=== PATIENT | female | born 1930 | race Caucasian/White ===

== ENCOUNTER 2017-08-20 08:24 | Emergency (ER) | payer MEDICARE, OTHER ==
[~2017-08-20] VITALS: Ht 157.5 cm; Wt 81.7 kg
[~2017-08-20 08:24] MED LIST: ACCUNEB SO1.25 MG/1 INH; AMBIEN 10 MG TA10 MG OR; ASPIR 8181 M1 PO; ASPIR 8181 MG PO; ASPIRIN EC325 M1 PO; ASPIRIN EC81 M1; ASPIRIN325 PO; AZITHROMYCIN 2250 MG PO; BLOOD PRESSURE; BUMETANIDE 1 MG1 M1 PO; BUSPIRONE HCL10 MG PO; CARVEDILOL6.25 MG PO; CIPROFLOXACIN500 M1 PO; COLACE100 MG PO; CYMBALTA30 MG PO; CYMBALTA60 MG PO; DETROL LA2 MG PO; ENABLEX15 MG PO; FIBERCON625 M1 PO; FIORICET 50-301 EACH PO; FISH OIL 1,0001 EAC5 PO; FISH OIL 1,001000 M3 PO; FISHOIL; FUROSEMIDE; IRON159 MG; IRON256 MG PO; IRON325 PO; LASIX 40 MG TAB40 M1 PO; LEVAQUIN 500 M500 M2 PO; LEVAQUIN 500 M500 MG PO; LISINOPRIL10 MG PO; LISINOPRIL5 MG PO; LOPERAMIDE 2 MG2 M1 PO; MACRODANTIN100 MG; MECLIZINE HCL25 M1 PO; METAMUCIL PAC1 UDPK1; METOPROLOL SUCC25 M1 PO; MIRALAX17 G1 PO; MOM; MUCINEX TA600 MG/TA1 PO; NITROFURANTOIN100 MG PO; NITROFURANTOIN50 M4; NITROGLYCERIN0.4 MG SUBLING; NORCO 5-325 TA1 EACH PO; OXYCODONE HCL 55 MG PO; PERCOCET 5-3251 EACH PO; PROVENTIL HFA6.7 G1 INH; REMERON30 MG PO; SIMVASTATIN20 MG; STOOL SOFTENER240 MG PO; TESSALON PERLE100 M1 PO; TOPROL XL25 MG; TOPROL XL50 MG PO; TRAMADOL 50 MG50 MG PO; VESICARE10 M1 PO; VICODIN; VICODIN 5-5001 EACH; VICODIN 5-5001 EACH PO; VITAMIN D-32000 UNIT PO; VITAMIN D1000 UNI1 PO; VITAMIN D2400 UNIT PO; VITAMIN D32000 UNI1 PO; VITAMIN E400 UNIT PO; XANAX 0.25 MG0.25 MG PO; XANAX 1 MG TABLE1 MG PO; XANAX XR1 MG OR; XANAX XR1 MG PO; XANAX1 MG PO; XARELTO10 MG PO; ZEBUTAL; ZEBUTAL 50-3251 EACH PO; ZOCOR 20 MG TAB20 M1 PO
[2017-08-20] MEDS ORDERED: KEFLEX500 M1 PO (10:02)
[2017-08-20] MEDS ORDERED: NORCO 5-325 TA1 EACH PO (10:02)
[2017-08-20 10:13] VITALS: BP 120/55
== END 2017-08-20 10:15 | disposition home or self-care (01) ==
LOC: M.ERS 08:24
DX: S61.411A Laceration without foreign body of right hand, initial encounter (principal); Z87.891 Personal history of nicotine dependence; Z88.0 Allergy status to penicillin; Z88.2 Allergy status to sulfonamides; Z88.5 Allergy status to narcotic agent; Z88.3 Allergy status to other anti-infective agents; W01.0XXA Fall on same level from slipping, tripping and stumbling without subsequent striking against object, initial encounter; Y93.89 Activity, other specified; Y92.89 Other specified places as the place of occurrence of the external cause; Y99.8 Other external cause status

== ENCOUNTER 2017-11-01 19:02 | Emergency (ER) | payer MEDICARE, OTHER ==
[~2017-11-01] VITALS: Ht 167.6 cm; Wt 72.6 kg
[~2017-11-01 19:02] MED LIST changes: +KEFLEX500 M1 PO
[2017-11-01] MEDS ORDERED: XANAX 0.25 MG0.25 MG PO (19:15)
[2017-11-01] MEDS ORDERED: BUSPIRONE HCL10 MG PO (19:16)
[2017-11-01] MEDS ORDERED: TRAMADOL 50 MG50 MG PO (19:16)
[2017-11-01] MEDS ORDERED: TOLTERODINE TART2 M1 PO (19:17)
[2017-11-01] MEDS ORDERED: VESICARE10 M1 PO (19:18)
[2017-11-01 19:31] LABS: ABSOLUTE EOSINOPHILS 0.1 thou/uL (0.0-0.7); ABSOLUTE LYMPHOCYTES 1.5 thou/uL (0.8-5.3); ABSOLUTE MONOCYTES 0.3 thou/uL (0.0-1.2); ABSOLUTE NEUTROPHILS 6.6 thou/uL (1.6-8.1); BASOPHILS 0.4 %; EOSINOPHILS 0.6 %; HEMATOCRIT 40.3 % (37.0-47.0); HEMOGLOBIN 13.3 gm/dL (12.0-15.0); LYMPHOCYTES 17.6 %; MCH 29.7 pg (26.0-34.0); MCHC 33.1 g/dL (28.0-37.0); MCV 89.7 fL (80.0-100.0); MONOCYTES 3.9 %; MPV 7.7 fl. (7.2-11.1); NUCLEATED RBCS 0 /100WBC; PLATELET COUNT* 308 thou/uL (150-400); POLYS 77.5 %; RBC 4.49 mil/uL (4.20-5.00); RDW-CV 14.7 % (10.5-14.5); WBC 8.5 thou/uL (4.0-11.0)
[2017-11-01 19:44] LABS: CALCIUM 8.7 mg/dL (8.5-10.1); CREATININE 1.3 mg/dL (0.6-1.3); POTASSIUM 4.1 mmol/L (3.5-5.1)
[2017-11-01 19:56] LABS: TOTAL BILIRUBIN 0.3 mg/dL (<0.1-1.0); TOTAL PROTEIN 7.3 g/dL (6.4-8.2)
[2017-11-01 21:11] LABS: URINE BILIRUBIN NEGATIVE (Negative); URINE BLOOD 1+ (Negative); URINE COLOR YELLOW; URINE GLUCOSE-RANDOM NEGATIVE (Negative); URINE KETONES NEGATIVE (Negative); URINE LEUKOCYTES-REFLEX TRACE (Negative); URINE NITRITE-REFLEX NEGATIVE (Negative); URINE PROTEIN NEGATIVE (Negative); URINE UROBILINOGEN 0.2 E.U./dl (0.2-1.0)
[2017-11-01 21:13] LABS: URINE CLARITY HAZY
[2017-11-01 21:29] LABS: BACTERIA-REFLEX None Seen /HPF (None Seen); CASTS None Seen /LPF (None Seen); CRYSTALS None Seen /LPF (None Seen); SQUAMOUS 0-3 Few /LPF (0-3); URINE RBC 3-10 Few /HPF (0-2); URINE WBC-REFLEX 0-5 Rare /HPF (0-5)
[2017-11-01] MEDS ORDERED: ZOFRAN4 MG PO (21:36)
[2017-11-01 22:08] VITALS: BP 144/66
--- NOTE | 2017-11-02 18:08 | EKG ---
[place] [address] ELECTROCARDIOGRAM REPORT Name: PROSPER KAT I [id number] Admission: 11/01/17 Attend Phys: Discharge: 11/01/17 Date of : [birth year] Report #: [id number] THIS REPORT FOR: //name// [facility] ED Test Date: 2017-11-01 Test Time: 19:54:25 Pat Name: PROSPER KAT Department: Room: Gender: F Rn Sane: : 1930 Requested By: Bobo Durant Order Number: [id number] MD: Hayden Yo Measurements Intervals [place] Rate: 94 P: 66 [place]: 238 QRS: 22 QRSD: 86 T: 32 QT: 362 QTc: 453 Interpretive Statements Sinus rhythm Prolonged MO interval Compared to ECG 04/04/2017 19:07:15 First degree AV block now present Electronically Signed On 11-02-2017 18:08:04 CDT by Hayden Yo [email or web address] <ELECTRONICALLY SIGNED> By: Hayden Yo MD, [facility] 11/02/17 1808 53 53 Hayden Yo MD, FACC /EPI
== END 2017-11-01 22:09 | disposition home or self-care (01) ==
LOC: M.ERS 19:02
PROVIDERS: Emergency Medicine
DX: R10.32 Left lower quadrant pain (principal); M19.90 Unspecified osteoarthritis, unspecified site; I10 Essential (primary) hypertension; E78.00 Pure hypercholesterolemia, unspecified; F32.9 Major depressive disorder, single episode, unspecified; Z86.73 Personal history of transient ischemic attack (TIA), and cerebral infarction without residual deficits; Z90.89 Acquired absence of other organs; Z90.49 Acquired absence of other specified parts of digestive tract; Z96.642 Presence of left artificial hip joint; Z96.652 Presence of left artificial knee joint; Z86.711 Personal history of pulmonary embolism; Z88.8 Allergy status to other drugs, medicaments and biological substances; Z88.0 Allergy status to penicillin; Z88.2 Allergy status to sulfonamides; Z87.891 Personal history of nicotine dependence

== ENCOUNTER 2017-12-19 22:56 | Emergency (ER) | payer MEDICARE, OTHER ==
[~2017-12-19] VITALS: Ht 167.6 cm; Wt 74.8 kg
[~2017-12-19 22:56] MED LIST changes: +TOLTERODINE TART2 M1 PO; +ZOFRAN4 MG PO
[2017-12-20 00:08] LABS: ABSOLUTE BASOPHILS 0.1 thou/uL (0.0-0.2); ABSOLUTE EOSINOPHILS 0.2 thou/uL (0.0-0.7); ABSOLUTE LYMPHOCYTES 2.3 thou/uL (0.8-5.3); ABSOLUTE MONOCYTES 0.7 thou/uL (0.0-1.2); ABSOLUTE NEUTROPHILS 5.8 thou/uL (1.6-8.1); EOSINOPHILS 2.2 %; HEMATOCRIT 35.5 % (37.0-47.0); HEMOGLOBIN 11.7 gm/dL (12.0-15.0); LYMPHOCYTES 25.1 %; MCH 29.6 pg (26.0-34.0); MCV 89.4 fL (80.0-100.0); MONOCYTES 7.4 %; MPV 7.5 fl. (7.2-11.1); NUCLEATED RBCS 0 /100WBC; PLATELET COUNT* 264 thou/uL (150-400); POLYS 64.3 %; RBC 3.97 mil/uL (4.20-5.00); RDW-CV 14.6 % (10.5-14.5); WBC 9.1 thou/uL (4.0-11.0)
[2017-12-20 00:20] LABS: CALCIUM 8.5 mg/dL (8.5-10.1); CREATININE 1.2 mg/dL (0.6-1.3); POTASSIUM 4.2 mmol/L (3.5-5.1)
[2017-12-20 00:25] LABS: ALBUMIN 3.5 g/dL (3.4-5.0); TOTAL BILIRUBIN 0.4 mg/dL (<0.1-1.0); TOTAL PROTEIN 6.7 g/dL (6.4-8.2)
[2017-12-20] MEDS ORDERED: NORCO 5-325 TA1 EACH PO (01:04)
[2017-12-20 02:10] VITALS: BP 166/81
--- NOTE | 2017-12-20 09:35 | EKG ---
[place] [address] ELECTROCARDIOGRAM REPORT Name: PROSPER KAT I [id number] Admission: 12/19/17 Attend Phys: Discharge: 12/20/17 Date of : [birth year] Report #: [id number] THIS REPORT FOR: //name// [facility] ED Test Date: 2017-12-19 Test Time: 23:39:46 Pat Name: PROSPER KAT Department: Room: Gender: F Four Slide Operator: ARTEMIO : 1930 Requested By: Terrance Alvarado Order Number: [id number] MD: Joaquin Salcedo Measurements Intervals [place] Rate: 69 P: 58 CT: 237 QRS: 14 QRSD: 81 T: 50 QT: 403 QTc: 432 Interpretive Statements Sinus rhythm Prolonged CT interval Abnormal R-wave progression, early transition Compared to ECG 11/01/2017 19:54:25 No significant changes Electronically Signed On 12-20-2017 9:35:29 CDT by Joaquin Salcedo [email or web address] <ELECTRONICALLY SIGNED> By: Joaquin Salcedo MD, [facility] 12/20/17 0935 [id number] Joaquin Salcedo MD, [facility] /EPI
== END 2017-12-20 02:12 | disposition home or self-care (01) ==
LOC: M.ERS 22:56
PROVIDERS: Family Medicine
DX: S61.212A Laceration without foreign body of right middle finger without damage to nail, initial encounter (principal); S00.83XA Contusion of other part of head, initial encounter; M19.90 Unspecified osteoarthritis, unspecified site; I10 Essential (primary) hypertension; E78.00 Pure hypercholesterolemia, unspecified; F32.9 Major depressive disorder, single episode, unspecified; Z86.73 Personal history of transient ischemic attack (TIA), and cerebral infarction without residual deficits; Z96.652 Presence of left artificial knee joint; Z96.642 Presence of left artificial hip joint; Z86.711 Personal history of pulmonary embolism; Z88.8 Allergy status to other drugs, medicaments and biological substances; Z88.0 Allergy status to penicillin; Z88.2 Allergy status to sulfonamides; Z87.891 Personal history of nicotine dependence; W07.XXXA Fall from chair, initial encounter; Y93.89 Activity, other specified; Y92.89 Other specified places as the place of occurrence of the external cause; Y99.8 Other external cause status

== ENCOUNTER 2018-04-03 07:57 | Observation (INO) | payer MEDICARE, OTHER ==
[~2018-04-03] VITALS: Ht 167.6 cm; Wt 73.5 kg
[2018-04-03 08:07] VITALS: BP 175/86
[2018-04-03 08:26] LABS: ABSOLUTE BASOPHILS 0.1 thou/uL (0.0-0.2); ABSOLUTE EOSINOPHILS 0.2 thou/uL (0.0-0.7); ABSOLUTE LYMPHOCYTES 1.6 thou/uL (0.8-5.3); ABSOLUTE MONOCYTES 0.7 thou/uL (0.0-1.2); BASOPHILS 0.6 %; EOSINOPHILS 1.5 %; HEMATOCRIT 37.3 % (37.0-47.0); HEMOGLOBIN 12.1 gm/dL (12.0-15.0); LYMPHOCYTES 14.2 %; MCHC 32.5 g/dL (28.0-37.0); MCV 89.2 fL (80.0-100.0); MONOCYTES 5.9 %; MPV 6.7 fl. (7.2-11.1); NUCLEATED RBCS 0 /100WBC; PLATELET COUNT* 330 thou/uL (150-400); POLYS 77.8 %; RBC 4.18 mil/uL (4.20-5.00); WBC 11.6 thou/uL (4.0-11.0)
[2018-04-03 08:31] LABS: CALCIUM 8.8 mg/dL (8.5-10.1); POTASSIUM 4.2 mmol/L (3.5-5.1)
[2018-04-03 08:33] LABS: APTT 28.8 Seconds (25.0-31.3); PROTIME 9.9 Seconds (9.20-11.50)
[2018-04-03 08:35] LABS: ALBUMIN 3.6 g/dL (3.4-5.0); TOTAL BILIRUBIN 0.5 mg/dL (<0.1-1.0); TOTAL PROTEIN 7.2 g/dL (6.4-8.2)
[2018-04-03 10:25] LABS: URINE BILIRUBIN NEGATIVE (Negative); URINE BLOOD TRACE (Negative); URINE CLARITY CLEAR; URINE COLOR YELLOW; URINE GLUCOSE-RANDOM NEGATIVE (Negative); URINE KETONES NEGATIVE (Negative); URINE LEUKOCYTES-REFLEX NEGATIVE (Negative); URINE NITRITE-REFLEX NEGATIVE (Negative); URINE PROTEIN NEGATIVE (Negative); URINE SPECIFIC GRAVITY <= 1.005 (1.005-1.030); URINE UROBILINOGEN 0.2 E.U./dl (0.2-1.0)
[2018-04-03 10:30] LABS: TROPONIN-I LEVEL <0.06 ng/mL (<0.06)
[2018-04-03 11:30] VITALS: BP 135/72
[2018-04-03] MEDS ORDERED: LATANOPROST 0.2.5 ML OPHTHALMIC (12:07)
[2018-04-03 16:00] VITALS: BP 128/63
--- NOTE | 2018-04-03 16:41 | EKG ---
[place] [address] ELECTROCARDIOGRAM REPORT Name: PROSPER KAT I Room: [address] ADM IN M.R.#: [id number] Admission: 04/03/18 Attend Phys: Peng Lee MD Discharge: Date of : [birth year] Report #: [id number] THIS REPORT FOR: //name// [facility] ED Test Date: 2018-04-03 Test Time: 09:26:14 Pat Name: PROSPER KAT Department: Room: [facility] Gender: F Director [employer]: Letty GREGORY : 1930 Requested By: Terrance Alvarado Order Number: [id number] MD: Rasta Pena Measurements Intervals [place] Rate: 78 P: 73 [place]: 198 QRS: 19 QRSD: 92 T: 49 QT: 396 QTc: 452 Interpretive Statements Sinus rhythm artifact noted Compared to ECG 12/19/2017 23:39:46 First degree AV block no longer present Electronically Signed On 04-03-2018 16:41:23 CDT by Rasta Pena [email or web address] <ELECTRONICALLY SIGNED> By: Rasta Pena MD, [facility] 04/03/18 1641 0926 0926 Rasta Pena MD, [facility] /EPI
[2018-04-03 23:45] VITALS: BP 112/58
[2018-04-04 08:15] VITALS: BP 108/54
[2018-04-04] MEDS ORDERED: PREDNISONE 10 M10 MG PO (10:48)
[2018-04-04] MEDS ORDERED: NORCO 5-325 TA1 EACH PO (11:04)
[2018-04-04 11:06] VITALS: BP 108/54
== END 2018-04-04 12:02 | disposition home or self-care (01) ==
LOC: M.ERS 07:57 → M.3W 10:50 → M.TBA-ER 10:50 → M.3W 10:50
PROVIDERS: Family Medicine; ADMIT Internal Medicine
DX: M48.061 Spinal stenosis, lumbar region without neurogenic claudication (principal); M16.12 Unilateral primary osteoarthritis, left hip; R53.81 Other malaise; F32.9 Major depressive disorder, single episode, unspecified; M54.5 Low back pain; K57.90 Diverticulosis of intestine, part unspecified, without perforation or abscess without bleeding; M70.61 Trochanteric bursitis, right hip; E87.1 Hypo-osmolality and hyponatremia; E78.00 Pure hypercholesterolemia, unspecified; F17.210 Nicotine dependence, cigarettes, uncomplicated; R32 Unspecified urinary incontinence; Z86.711 Personal history of pulmonary embolism; Z90.49 Acquired absence of other specified parts of digestive tract; Z98.890 Other specified postprocedural states; Z86.73 Personal history of transient ischemic attack (TIA), and cerebral infarction without residual deficits

== ENCOUNTER 2018-05-06 10:58 | Emergency (ER) | payer MEDICARE, OTHER ==
[~2018-05-06] VITALS: Ht 167.6 cm; Wt 74.2 kg
[~2018-05-06 10:58] MED LIST changes: +LATANOPROST 0.2.5 ML OPHTHALMIC; +PREDNISONE 10 M10 MG PO
[2018-05-06 12:18] VITALS: BP 120/58
== END 2018-05-06 12:19 | disposition home or self-care (01) ==
LOC: M.ERS 10:58
DX: S41.111A Laceration without foreign body of right upper arm, initial encounter (principal); S51.011A Laceration without foreign body of right elbow, initial encounter; S51.811A Laceration without foreign body of right forearm, initial encounter; M19.90 Unspecified osteoarthritis, unspecified site; I10 Essential (primary) hypertension; E78.00 Pure hypercholesterolemia, unspecified; F32.9 Major depressive disorder, single episode, unspecified; Z90.49 Acquired absence of other specified parts of digestive tract; Z96.642 Presence of left artificial hip joint; Z96.652 Presence of left artificial knee joint; Z87.891 Personal history of nicotine dependence; Z88.0 Allergy status to penicillin; Z88.2 Allergy status to sulfonamides; Z88.8 Allergy status to other drugs, medicaments and biological substances; Z86.73 Personal history of transient ischemic attack (TIA), and cerebral infarction without residual deficits; W22.8XXA Striking against or struck by other objects, initial encounter; Y93.89 Activity, other specified; Y92.89 Other specified places as the place of occurrence of the external cause; Y99.8 Other external cause status